=== PATIENT | male | born 1970 | race Caucasian/White ===

== ENCOUNTER 2025-02-26 21:34 | Emergency (ER) | payer OTHER, SELFPAY ==
[2025-02-26 21:47] VITALS: BP 154/94
--- NOTE | 2025-02-26 22:59 | ED.GENMED ---
History of Present Illness
General
Chief Complaint: Headache
Source: patient
Time Seen by Provider: 02/26/25 22:55
History of Present Illness
History of Present Illness:
54-year-old male presents to emergency room complaining of headache. Patient developed headaches about a year ago. He has been seen by his primary care provider as well as a ears nose and throat specialist. He is been taking Tylenol, ibuprofen
without relief. He took a dose of verapamil which his family doctor had recommended. He had no relief with this. He has tried nasal spray as well as a Maxalt in the past without improvement. No focal weakness. No visual changes
Course
Orders/Labs/Results
Orders:
Orders
02/26/25 21:54
CT Head W/o Iv Contrast Urgent
Comment:
Reason For Exam: headache
Vital Signs
Initial and Last Documented VS:
Initial Vital Signs
Temp Pulse Resp BP Pulse Ox
97.6 F 68 18 154/94 98
02/26/25 21:47 02/26/25 21:47 02/26/25 21:47 02/26/25 21:47 02/26/25 21:47
Last Documented Vital Signs
Temp Pulse Resp BP Pulse Ox
97.6 F 68 18 154/94 98
02/26/25 21:47 02/26/25 21:47 02/26/25 21:47 02/26/25 21:47 02/26/25 21:47
MDM/Problems Addressed
Differential Diagnosis Includes:
Intracranial mass, subarachnoid hemorrhage, migraine, tension
MDM/Problems Addressed:
Patient presents with left-sided headache which he believes are migraines. Imaging here shows no acute abnormality. Will treat with Reglan and Benadryl as well as Toradol.
*Radiology
Radiology exam reviewed: radiology read reviewed
*Pulse Oximetry
SaO2: 98
Oxygen Mode of Delivery: Room air
Patient hypoxic: no
*Critical Care Note
Total Time (30-74mins, 75-104mins- exclusive of procedures): Not Applicable
ED Attending Note
-
Portions of this chart may have been created with voice recognition software.� Occasional wrong word or��sound alike� substitutions may have occurred due to the inherent limitations of voice recognition software.
Discharge Plan
Interventions
Interventions:
*Risk Screen - Suicide Last Done: 02/26/25 21:35
Discharge Date and Time
Print Language: ICELANDIC
[2025-02-26 23:08] VITALS: BMI 28.8
[2025-02-26] MEDS: TORADOL 15 MG IV (23:25)
[2025-02-26] MEDS: REGLAN 10 MG IV (23:25)
[2025-02-26] MEDS: BENADRYL 25 MG IV (23:25)
[2025-02-26] MEDS: NSS 1000 IV (23:26)
[2025-02-26 23:47] VITALS: BP 132/79
[2025-02-27] MEDS: NSS 1000 IV (00:35)
== END 2025-02-27 01:15 | disposition home or self-care (01) ==
LOC: EMR 21:34
PROVIDERS: EMERGENCY PHYSICIAN Emergency Medicine; FAMILY PHYSICIAN Family Medicine
DX: R51.9 Headache, unspecified (principal)
CPT/HCPCS: 96374; 96375; 96361; 99284; 70450